=== PATIENT | male | born 1985 | race African-American/Black ===

== ENCOUNTER 2017-08-30 03:09 | Emergency (ER) | payer BC, SELFPAY ==
[2017-08-30] MEDS ORDERED: Ketorolac Tromethamine 60 MG/2 ML VIAL ONE (03:32)
== END 2017-08-30 03:35 | disposition home or self-care (01) ==
LOC: NAV ERS 03:09
DX: S90.211A Contusion of right great toe with damage to nail, initial encounter (principal); X58.XXXA Exposure to other specified factors, initial encounter
CPT/HCPCS: 96372; J1885